=== PATIENT | male | born 1935 | race Caucasian/White ===

== ENCOUNTER 2018-04-28 12:42 | Day surgery (SDC) | payer OTHER ==
[~2018-04-28] VITALS: Ht 160 cm; Wt 68.0 kg
[~2018-04-28 12:42] MED LIST: ACETAMINOPHEN325 M1 PO; ASPIRIN81 M2 PO; ATORVASTATIN CA40 MG PO; CARVEDILOL6.25 MG PO; CLONAZEPAM0.5 MG PO; ELIQUIS5 MG PO; ENALAPRIL MALE2.5 MG PO; ENSURE LIQUID237 ML PO; HYDROCORTISONE45 G1 TP; KETOCONAZOLE120 ML TP; REFRESH TEARS15 ML BOTH EYES; RISPERDAL1 MG PO; ROBAFEN CF SYR118 M1 PO; VALPROIC ACID250 MG PO
== END 2018-04-28 15:27 ==
LOC: CATH 12:42
DX: Z45.02 Encounter for adjustment and management of automatic implantable cardiac defibrillator (principal); I25.5 Ischemic cardiomyopathy; I48.0 Paroxysmal atrial fibrillation; I25.10 Atherosclerotic heart disease of native coronary artery without angina pectoris; E78.2 Mixed hyperlipidemia; I10 Essential (primary) hypertension
CPT/HCPCS: C1882; J1200; J2250; J3010; S0020